=== PATIENT | male | born 1955 | race Caucasian/White ===

== ENCOUNTER 2024-03-23 17:12 | Emergency (ER) | payer MEDICAID ==
[~2024-03-23] VITALS: Ht 177.8 cm; Wt 72.7 kg
[2024-03-23 17:41] LABS: BILIRUBIN,URINE NEGATIVE (Neg); CLARITY,URINE CLEAR (Clear); COLOR,URINE YELLOW (Yellow); GLUCOSE, URINE 500 mg/dl (Neg); KETONES,URINE NEGATIVE (Neg); LEUKOCYTE ESTERASE ,URINE NEGATIVE (Neg); NITRITES, URINE NEGATIVE (Neg); OCCULT BLOOD,URINE NEGATIVE (Neg); PROTEIN,URINE NEGATIVE (Neg); UROBILINOGEN,URINE >=8.0 E.U/dL (0.2-1.0)
[2024-03-23 17:46] LABS: UA COLLECTION TYPE VOIDED
[2024-03-23 17:54] LABS: URINE AMPHETAMINE SCREEN NEGATIVE (Neg); URINE BARBITUATE SCREEN NEGATIVE (Neg); URINE BENZODIAZEPINES SCREEN NEGATIVE (Neg); URINE CANNABINOID SCREEN NEGATIVE (Neg); URINE COCAINE SCREEN NEGATIVE (Neg); URINE METHADONE SCREEN NEGATIVE (Neg); URINE OPIATE SCREEN NEGATIVE (Neg); URINE PHENCYCLIDINE SCREEN NEGATIVE (Neg)
[2024-03-23 18:06] LABS: BASOPHILS % (AUTO) 0.2 % (0-1); EOSINOPHILS # (AUTO) 0.5 X10'3 (0-0.9); EOSINOPHILS % (AUTO) 9.8 % (0-6); HEMATOCRIT 39.6 % (42.0-52.0); HEMOGLOBIN 12.8 g/dl (14.0-17.9); LYMPHOCYTES # (AUTO) 0.7 X10'3 (1.1-4.8); LYMPHOCYTES % (AUTO) 13.6 % (21-51); MEAN CORPUSCULAR HEMOGLOBIN 31.5 PG (27.0-31.0); MEAN CORPUSCULAR HGB CONC 32.4 g/dL (33.0-36.5); MEAN PLATELET VOLUME 8.4 FL (7.4-10.4); MONOCYTES # (AUTO) 0.4 X10'3 (0-0.9); MONOCYTES % (AUTO) 8.7 % (2-12); NEUTROPHILS # (AUTO) 3.3 X10'3 (1.8-7.7); NEUTROPHILS % (AUTO) 67.7 % (42-75); PLATELET COUNT 253 X10'3 (140-440); RED BLOOD COUNT 4.08 X10'6 (4.70-6.10); RED CELL DISTRIBUTION WIDTH 16.7 % (11.5-14.5); WHITE BLOOD COUNT 4.8 X10'3 (4.5-11.0)
[2024-03-23 18:35] LABS: ANION GAP 8 (8-16); BLOOD UREA NITROGEN 17 MG/DL (7-18); BUN/CREATININE RATIO 20.2 (10.0-20.0); CALCIUM 8.9 MG/DL (8.5-10.1); CHLORIDE 103 MMOL/L (99-107); CREATININE 0.84 MG/DL (0.60-1.10); GLUCOSE 350 MG/DL (70-104); POTASSIUM 3.8 MMOL/L (3.5-5.1); SODIUM 138 MMOL/L (135-145); THYROID STIMULATING HORMONE 1.34 ulU/ml (0.34-4.50); TOTAL CARBON DIOXIDE 27.5 MMOL/L (24-32); eCRCL 89 ML/MIN; eGFR > 90 ML/MIN
[2024-03-23 18:39] LABS: ETHANOL < 10 MG/DL (<10)
[2024-03-24] MEDS ORDERED: glucagon, human recombinant 1mg kit SUBCUT PRN (04:40)
[2024-03-24] MEDS ORDERED: dextrose 50%-water 50ml dispensing syringe IV PRN ×2 (04:40)
[2024-03-24] MEDS ORDERED: DEXTROSE 15 GM of carb/4 tabs (each vial/BOTTLE has 4 tablets) PO PRN ×2 (04:40)
[2024-03-24 07:00] VITALS: BP 116/78; PULSE 75; TEMP 98.4; O2SAT 99
[2024-03-24 07:50] VITALS: RESP 16
[2024-03-24] MEDS ORDERED: INSU100V11 SQ (09:06)
[2024-03-24] MEDS ORDERED: LANTUS SUBCUT (09:08)
[2024-03-24] MEDS ORDERED: HYDR50CA5 PO (09:25)
[2024-03-24] MEDS ORDERED: METF-438 PO (09:25)
[2024-03-24] MEDS ORDERED: hydrOXYzine 25 MG tablet PO PRN (10:05)
[2024-03-24] MEDS: insulin Lispro (HumaLOG) vial - multi-dose SQ SCH (13:00)
[2024-03-24] MEDS ORDERED: metFORMIN 500mg tablet PO SCH (20:00)
[2024-03-24] MEDS ORDERED: insulin glargine (Lantus) pen - multi-dose SQ SCH (21:00)
== END 2024-03-24 12:55 | disposition home or self-care (01) ==
LOC: ER 17:13
DX: R45.851 Suicidal ideations (principal); Z20.822 Contact with and (suspected) exposure to COVID-19; E11.9 Type 2 diabetes mellitus without complications; F22 Delusional disorders; Z79.4 Long term (current) use of insulin; Z79.899 Other long term (current) drug therapy
CPT/HCPCS: 36415; 80048; 80305; 80320; 81003; 82948; 83036; 84443; 85025; 87811; 99285; J1815